=== PATIENT | male | born 1975 | race African-American/Black ===

== ENCOUNTER 2017-07-16 13:29 | Emergency (ER) | payer MEDICAID, OTHER ==
[~2017-07-16] VITALS: Ht 180.3 cm; Wt 67.3 kg
[~2017-07-16 13:29] MED LIST: NORCO
[2017-07-16 15:29] LABS: BASOPHILS % 0.7 % (0.0-2.0); EOSINOPHILS % 3.8 % (0.0-5.0); HEMATOCRIT. 41.4 % (42.0-52.0); HEMOGLOBIN. 14.1 g/dL (14.0-18.0); LYMPHOCYTES % 61.5 % (20.0-50.0); MEAN CORPUSCULAR HEMOGLOBIN 30.7 pg (28.0-32.0); MEAN PLATELET VOLUME 7.6 fl (7.4-10.4); MONOCYTES % 12.3 % (2.0-8.0); NEUTROPHILS % 21.7 % (40.0-76.0); PLATELET 266 x1000/uL (130-400); RED CELL DISTRIBUTION WIDTH 12.8 % (11.6-14.6)
[2017-07-16 15:34] LABS: INR 1.1
[2017-07-16 15:36] LABS: CHLORIDE 106 mEq/L (98-107)
[2017-07-16 15:41] LABS: TROPONIN I < 0.02 ng/mL (0.00-0.04)
[2017-07-16] MEDS ORDERED: IBUPROFEN 600MG TABLET PO ONE (19:00)
[2017-07-16 20:00] VITALS: BP 102/61
== END 2017-07-16 20:08 | disposition home or self-care (01) ==
LOC: ER 14:21
DX: R07.89 Other chest pain (principal); G43.909 Migraine, unspecified, not intractable, without status migrainosus; F12.10 Cannabis abuse, uncomplicated; Z87.891 Personal history of nicotine dependence; Z86.79 Personal history of other diseases of the circulatory system
CPT/HCPCS: 36415; 71045; 80053; 84484; 85025; 85610; 93005; 99285; Z7610